=== PATIENT | male | born 1960 | race Caucasian/White ===

== ENCOUNTER 2018-09-10 10:04 | Day surgery (SDC) | payer BC ==
[~2018-09-10 10:04] MED LIST: Lactated Ringers 1,000 ML IV SCH; Lidocaine 1%/Sod Bicarbonate in NS 8.4% 1 ML Syringe IDERM PRN; Sodium Chloride 0.9% 10 ML Syringe FLUSH PRN
[2018-09-10] MEDS ORDERED: Lidocaine 1% 30 ML SDV ONE (10:17)
[2018-09-10] MEDS ORDERED: Bupivacaine 0.25% 30 ML SDV ONE (10:19)
[2018-09-10] MEDS ORDERED: Bupivacaine 0.25% 10 ML SDV ONE (10:47)
[2018-09-10] MEDS ORDERED: Triamcinolone Acetonide 40 MG/ML 1 ML MDV ONE (10:47)
[2018-09-10 11:29] VITALS: BP 153/96
--- NOTE | 2018-09-10 13:28 | PCM.OPNOTE ---
- General Post-Op/Procedure Note Date of Surgery/Procedure: 09/10/18 Operative Procedure(s): left carpal tunnel release with right basilar thumb joint injection Pre Op Diagnosis: left median nerve compression neuropathy Post-Op Diagnosis: Same Anesthesia Technique: Local Primary Surgeon: Gabo Ash Customer Supply Coordinator: Mary Dalton in mLs: 5 Complications: None Condition: Good
--- NOTE | 2018-09-10 13:50 | OR ---
DATE OF OPERATION: 09/10/2018 SURGEON: Gabo Ash MD OPERATION PERFORMED: Left carpal tunnel release with right basilar thumb joint injection. 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 ANESTHESIA: Local. PLC TECHNICIAN: Mary Dalton PA-C. ESTIMATED BLOOD LOSS: Less than 5 mL. COMPLICATIONS: None. CONDITION: Stable. ANESTHESIA: None. DESCRIPTION OF PROCEDURE: The patient was identified in the preop holding area. Proper site was marked and identified by the surgeon. The patient was taken back to the operating theater where after adequate anesthesia, the patient's left upper extremity was sterilely prepped and draped in the usual sterile fashion. OR time-out was performed. The patient did not receive antibiotics and it is not indicated for soft tissue hand procedure. At this time, the left upper extremity was exsanguinated and an Esmarch was used as a tourniquet on the forearm. At this time, using 1% lidocaine without epinephrine and 0.25% Marcaine without epinephrine, the palmar cutaneous branch of the median nerve was anesthetized and then the incisional site was anesthetized using Beach cardinal line and ulnar border of the fourth digit as reference. Once this had set up, an incision was made. Blunt dissection was taken down to the palmar cutaneous fascia. Palmar cutaneous fascia was incised with a Tomales blade. At this time, the transverse carpal ligament was identified. A small rent was made in the transverse carpal ligament with a Tomales blade under direct visualization. Resection of the transverse carpal ligament was done distally using tenotomy scissors making sure to stop short of the palmar arch. At this time, attention was turned proximally after it was found to be adequately released. Using the tenotomy scissors keeping the tips ulnar to protect the palmar cutaneous branch of the median nerve, the superficial forearm fascia as well as the transverse carpal ligament were resected proximally. It was found to be adequate release both proximally and distally. At this time, adequate saline was irrigated through the wound. 4-0 nylon sutures were used closure of the skin. The patient was placed in a sterile soft dressing and sent to PACU in stable condition. Under sterile technique, 1 mL of 40 mg Kenalog and 1 mL of 0.25% Marcaine were injected under sterile technique to the right basilar thumb joint. The patient tolerated both procedures well. PERFECTO /[id number]
== END 2018-09-10 11:31 | disposition home or self-care (01) ==
LOC: JD.SDS 10:04
PROVIDERS: ATTEND Orthopaedic Surgery
DX: G56.02 Carpal tunnel syndrome, left upper limb (principal); M19.041 Primary osteoarthritis, right hand; I10 Essential (primary) hypertension; I25.10 Atherosclerotic heart disease of native coronary artery without angina pectoris; E78.00 Pure hypercholesterolemia, unspecified; E78.1 Pure hyperglyceridemia; K57.92 Diverticulitis of intestine, part unspecified, without perforation or abscess without bleeding; Z79.82 Long term (current) use of aspirin; Z79.899 Other long term (current) drug therapy
CPT/HCPCS: 20600; 64721; 87641; J2001; J3301; J3490

== ENCOUNTER 2019-03-07 17:21 | Emergency (ER) | payer BC ==
[2019-03-07 17:30] VITALS: BP 136/84
[2019-03-07] MEDS ORDERED: Sodium Chloride 0.9% 10 ML Syringe FLUSH PRN (17:36)
--- NOTE | 2019-03-07 18:28 | EDM.PDOC ---
ED HPI GENERAL MEDICAL PROBLEM - General Chief Complaint: Cardiovascular Problem Stated Complaint: SOB,CHEST PAIN, TINGLING IN LEFT ARM Time Seen by Provider: 03/07/19 17:30 Source of Information: Reports: Patient History Limitations: Reports: No Limitations - History of Present Illness INITIAL COMMENTS - FREE TEXT/NARRATIVE: The patient presents with chest pain, shortness of breath and dizziness at times. This has been going on for a few months. It comes and goes. He had no symptoms today. He has a history of tripe vessel bypass in 2008. 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 He denies fever, chills, cough, congestion, runny nose, abdominal pain, nausea or vomiting. He says he drinks daily and would like to detox. He drinks 6 to 8 cans of beer per night. He also started to smoke in the past year. Onset: Gradual Duration: Week(s): Location: Reports: Chest Quality: Reports: Pressure Severity: Mild Improves with: Reports: None Worsens with: Reports: None Associated Symptoms: Reports: Chest Pain, Shortness of Breath. Denies: Cough, Fever/Chills, Headaches, Nausea/Vomiting Left Arm Pain Score (Numeric/FACES): 2 - Related Data Allergies Allergy/AdvReac Type Severity Reaction Status Date / Time No Known Allergies Allergy Verified 09/09/18 10:46 Home Meds: Home Meds Fenofibrate Nanocrystallized [Fenofibrate] 145 mg PO BEDTIME 12/13/14 [History] Lisinopril [Prinivil] 20 mg PO BEDTIME 12/13/14 [History] Metoprolol Tartrate [Lopressor] 25 mg PO BID 12/13/14 [History] Aspirin [Adult Low Dose Aspirin EC] 81 mg PO DAILY 09/09/18 [History] Fish Oil/[place]-3 Fatty Acids [Fish Oil 1,000 MG] 1 gm PO DAILY 09/09/18 [History ] atorvaSTATin Calcium [Lipitor] 40 mg PO DAILY 09/09/18 [History] Cyanocobalamin (Vitamin B-12) [Vitamin B-12] 1,000 mcg PO DAILY 03/07/19 [ History] LORazepam [Ativan] 1 mg PO DAILY #18 tablet 03/07/19 [Rx] Ondansetron [Zofran ODT] 4 mg PO Q6H PRN #20 tab.dis 03/07/19 [Rx] Past Medical History HEENT History: Reports: Impaired Vision Other HEENT History: frequent nose bleeds, wears glasses Cardiovascular History: Reports: Bypass, High Cholesterol, Hypertension, Other ( See Below) Other Cardiovascular History: coronary artery atherosclerosis, chest pain Respiratory History: Reports: None Gastrointestinal History: Reports: Diverticulosis Other Genitourinary History: CKD [employer] 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 History: Reports: None Musculoskeletal History: Reports: None Neurological History: Reports: None Psychiatric History: Reports: None, Addiction Endocrine/Metabolic History: Reports: None Hematologic History: Reports: None Immunologic History: Reports: None Oncologic (Cancer) History: Reports: None Dermatologic History: Reports: None - Past Surgical History Head Surgeries/Procedures: Reports: None HEENT Surgical History: Reports: None Cardiovascular Surgical History: Reports: Coronary Artery Bypass Other Cardiovascular Surgeries/Procedures: x3 Respiratory Surgical History: Reports: None GI Surgical History: Reports: Appendectomy, Colonoscopy Male Surgical History: Reports: None Endocrine Surgical History: Reports: None Musculoskeletal Surgical History: Reports: None Oncologic Surgical History: Reports: None Dermatological Surgical History: Reports: None Social & Family History - Tobacco Use Smoking Status *Q: Current Every Day Smoker Years of Tobacco use: 1 Packs/Tins Daily: 1 - Caffeine Use Caffeine Use: Reports: Coffee - Recreational Drug Use Recreational Drug Use: No ED ROS GENERAL - Review of Systems Review Of Systems: See Below Constitutional: Reports: No Symptoms HEENT: Reports: No Symptoms Respiratory: Reports: Shortness of Breath Cardiovascular: Reports: Chest Pain Endocrine: Reports: No Symptoms GI/Abdominal: Reports: No Symptoms ED EXAM, GENERAL - Physical Exam Exam: See Below Exam Limited By: No Limitations General Appearance: Alert, No Apparent Distress Ears: Normal External Exam Nose: Normal Inspection Head: Atraumatic, Normocephalic Neck: Normal Inspection Respiratory/Chest: No Respiratory Distress, Lungs Clear, Normal Breath Sounds Cardiovascular: Regular Rate, Rhythm, No Edema, No Murmur GI/Abdominal: Soft, Non-Tender, No Organomegaly, No Mass Back Exam: Normal Inspection EKG INTERPRETATION EKG Date: 03/07/19 Time: 17:35 Rhythm: NSR Rate (Beats/Min): 64 Holder: Normal P-Wave: Present QRS: Normal ST-T: Normal QT: Normal Course - Vital Signs Last Recorded V/S: Last Vital Signs Temp 98.3 F 03/07/19 17:29 Pulse 66 03/07/19 17:29 Resp 20 03/07/19 17:29 BP 136/84 03/07/19 17:29 Pulse Ox 99 03/07/19 17:29 - Orders/Labs/Meds Orders: Active Orders 24 hr Category Date Time Status EKG Documentation Completion [RC] ASDIRECTED Care 03/07/19 17:26 Active Peripheral IV Care [RC] . DIRECTED Care 03/07/19 17:36 Active Chest 1V Frontal [CR] Stat Exams 03/07/19 17:34 Taken Sodium Chloride 0.9% [Saline Flush] Med 03/07/19 17:36 Active 10 ml FLUSH ASDIRECTED PRN Peripheral IV Insertion Adult [OM.PC] Routine Oth 03/07/19 17:36 Ordered EKG 12 Lead [EK] Stat Ther 03/07/19 17:26 Ordered Medication Orders Sodium Chloride (Saline Flush) 10 ml FLUSH ASDIRECTED PRN PRN Reason: Keep Vein Open Last Admin: 03/07/19 17:38 Dose: 10 ml Labs: Laboratory Tests 03/07/19 03/07/19 03/07/19 Range/Units 17:30 17:30 17:30 WBC 8.56 (4.23-9.07) K/mm3 RBC 4.09 L (4.63-6.08) M/mm3 Hgb 12.7 L (13.7-17.5) gm/L Hct 38.4 L (40.1-51.0) % MCV 93.9 H (79.0-92.2) fl MCH 31.1 (25.7-32.2) pg MCHC 33.1 (32.2-35.5) g/dl RDW Std Deviation 42.5 (35.1-43.9) fL Plt Count 280 (163-337) K/mm3 MPV 9.2 L (9.4-12.3) fl Neut % (Auto) 60.3 (34.0-67.9) % Lymph % (Auto) 23.7 (21.8-53.1) % Louisa % (Auto) 11.9 (5.3-12.2) % Eos % (Auto) 2.8 (0.8-7.0) Baso % (Auto) 0.8 (0.1-1.2) % Neut # (Auto) 5.16 (1.78-5.38) K/mm3 Lymph # (Auto) 2.03 (1.32-3.57) K/mm3 Louisa # (Auto) 1.02 H (0.30-0.82) K/mm3 Eos # (Auto) 0.24 (0.04-0.54) K/mm3 Baso # (Auto) 0.07 (0.01-0.08) K/mm3 D-Dimer, Quantitative 0.30 (0.19-0.50) mg/L Sodium 140 (136-145) mEq/L Potassium 4.4 (3.5-5.1) mEq/L Chloride 106 (98-107) mEq/L Carbon Dioxide 25 (21-32) mEq/L Anion Gap 13.4 (5-15) BUN 24 H (7-18) mg/dL Creatinine 1.3 (0.7-1.3) mg/dL Est Cr Clr Drug Dosing 66.77 mL/min Estimated GFR (MDRD) 57 (>60) mL/min BUN/Creatinine Ratio 18.5 H (14-18) Glucose 102 (74-106) mg/dL Calcium 9.3 (8.5-10.1) mg/dL Total Bilirubin 0.4 (0.2-1.0) mg/dL AST 13 L (15-37) U/L ALT 31 (16-63) U/L Alkaline Phosphatase 88 (46-116) U/L Troponin I < 0.017 (0.00-0.056) ng/mL Total Protein 7.8 (6.4-8.2) g/dl Albumin 3.9 (3.4-5.0) g/dl Globulin 3.9 gm/dL Albumin/Globulin Ratio 1.0 (1-2) Ethyl Alcohol 0.00 (0.00) gm% Meds: Medications Generic Name Dose Route Start Last Admin Trade Name Freq PRN Reason Stop Dose Admin Sodium Chloride 10 ml 03/07/19 17:36 03/07/19 17:38 Saline Flush FLUSH 10 ml ASDIRECTED PRN Administration Keep Vein Open - Re-Assessments/Exams Free Text/Narrative Re-Assessment/Exam: 03/07/19 18:28 I ordered an IV saline lock, EKG, CXR and labs. 03/07/19 18:29 His EKG shows a NSR with no acute changes. His CXR looks good. His CBC and CMP look good. His d-dimer was negative. His troponin was negative. His ETOH is 0. 03/07/19 19:04 I had him talk [facility] and they have no room for him tonight but they will evaluate him in the morning. I will give him some ativan and zofran. Departure - Departure Time of Disposition: 19:05 Disposition: Home, Self-Care 01 Condition: Good Clinical Impression: Chest pain Qualifiers: Chest pain type: unspecified Qualified Code(s): R07.9 - Chest pain, unspecified Alcohol addiction Qualifiers: Substance use status: unspecified alcohol-induced disorder Qualified Code(s): F10.29 - Alcohol dependence with unspecified alcohol-induced disorder Prescriptions: LORazepam [Ativan] 1 mg PO DAILY #18 tablet Ondansetron [Zofran ODT] 4 mg PO Q6H PRN #20 tab.dis PRN Reason: Nausea\vomiting Referrals: Maricarmen Stinson NP [Primary Care Provider] - Forms: ED Department Discharge Additional Instructions: Take your medication as prescribed. Take the ativan 3 times per day for 3 days , then 2 times per day for 3 days and then at night for 3 nights. Take the zofran every 6 hours as needed for nausea and vomiting. [facility] tomorrow at 8am. Please return if you are worse. Follow up with your doctor within a week. - My Orders Last 24 Hours: My Active Orders 03/07/19 17:26 EKG Documentation Completion [RC] ASDIRECTED EKG 12 Lead [EK] Stat 03/07/19 17:34 Chest 1V Frontal [CR] Stat 03/07/19 17:36 Peripheral IV Care [RC] . DIRECTED Sodium Chloride 0.9% [Saline Flush] 10 ml FLUSH ASDIRECTED PRN Peripheral IV Insertion Adult [OM.PC] Routine - Assessment/Plan Last 24 Hours: My Active Orders 03/07/19 17:26 EKG Documentation Completion [RC] ASDIRECTED EKG 12 Lead [EK] Stat 03/07/19 17:34 Chest 1V Frontal [CR] Stat 03/07/19 17:36 Peripheral IV Care [RC] . DIRECTED Sodium Chloride 0.9% [Saline Flush] 10 ml FLUSH ASDIRECTED PRN Peripheral IV Insertion Adult [OM.PC] Routine
--- NOTE | 2019-03-08 08:32 | CR ---
Chest: Portable view of the chest was obtained. Comparison: No prior chest x-ray is available. Heart size and mediastinum are normal. Previous sternotomy is noted for CABG. Minimal linear scarring or atelectasis is seen within the left base. Lungs otherwise are clear with no acute parenchymal change. Bony structures are grossly intact. Impression: 1. Prior CABG. 2. Other findings believed to be incidental. Nothing acute is appreciated on portable chest x-ray. Diagnostic code #2
== END 2019-03-07 19:28 | disposition home or self-care (01) ==
LOC: JD.ED 17:21
DX: R07.9 Chest pain, unspecified (principal); F10.29 Alcohol dependence with unspecified alcohol-induced disorder; E78.00 Pure hypercholesterolemia, unspecified; I12.9 Hypertensive chronic kidney disease with stage 1 through stage 4 chronic kidney disease, or unspecified chronic kidney disease; N18.9 Chronic kidney disease, unspecified; F17.210 Nicotine dependence, cigarettes, uncomplicated; Z79.899 Other long term (current) drug therapy; Z79.82 Long term (current) use of aspirin
CPT/HCPCS: 36415; 71045; 80053; 84484; 85025; 85379; 93005; 99285; G0480

== ENCOUNTER 2019-04-30 11:29 | Emergency (ER) | payer BC ==
[2019-04-30 11:37] VITALS: BP 153/86; PULSE 64
[2019-04-30] MEDS ORDERED: HYDROmorphone 1 MG/ML Syringe IVPUSH STA (11:52)
[2019-04-30] MEDS ORDERED: Sodium Chloride 0.9% 10 ML Syringe FLUSH PRN (11:52)
[2019-04-30] MEDS ORDERED: Ondansetron 4 MG/2 ML SDV IVPUSH ONE (11:52)
[2019-04-30] MEDS ORDERED: Sodium Chloride 0.9% 1,000 ML IV SCH (12:00)
--- NOTE | 2019-04-30 12:20 | EDM.PDOC ---
ED HPI GENERAL MEDICAL PROBLEM - General Chief Complaint: Flank Pain Stated Complaint: RIGHT FLANK/KIDNEY PAIN Time Seen by Provider: 04/30/19 11:52 Source of Information: Reports: Patient, RN Notes Reviewed History Limitations: Reports: No Limitations - History of Present Illness INITIAL COMMENTS - FREE TEXT/NARRATIVE: Patient is a 59-year-old male who presents to the ED for the evaluation of right -sided flank pain. Patient states that he noticed a little discomfort last night, but he states that it is worsened throughout this morning. He went to work and had to leave work due to the pain. He notes that the pain does radiate into the groin, he characterizes as a throbbing pain that is constant in nature. He took 2 aspirins this morning for pain management. He denies any dysuria, urgency or frequency, and states that he thinks he is actually gone. He left than he normally does. He further denies any history of a kidney stone any blood in the urine, any fevers or chills, vomiting or diarrhea. He states he did have a little bit of nausea this morning, this is better. He has not had any issues with urinary problems prior to this. Patient doesn't think that he could be dehydrated, as he states he is drinking an adequate amount of water throughout the day. Right Flank Pain Score (Numeric/FACES): 10 - Related Data Allergies Allergy/AdvReac Type Severity Reaction Status Date / Time No Known Allergies Allergy Verified 04/30/19 11:37 Home Meds: Home Meds Fenofibrate Nanocrystallized [Fenofibrate] 145 mg PO BEDTIME 12/13/14 [History] Lisinopril [Prinivil] 20 mg PO BEDTIME 12/13/14 [History] Metoprolol Tartrate [Lopressor] 25 mg PO BID 12/13/14 [History] Aspirin [Adult Low Dose Aspirin EC] 81 mg PO DAILY 09/09/18 [History] Fish Oil/[place]-3 Fatty Acids [Fish Oil 1,000 MG] 1 gm PO DAILY 09/09/18 [History ] atorvaSTATin Calcium [Lipitor] 40 mg PO DAILY 09/09/18 [History] Cyanocobalamin (Vitamin B-12) [Vitamin B-12] 1,000 mcg PO DAILY 03/07/19 [ History] Past Medical History HEENT History: Reports: Impaired Vision Other HEENT History: frequent nose bleeds, wears glasses Cardiovascular History: Reports: Bypass, High Cholesterol, Hypertension, Other ( See Below) Other Cardiovascular History: coronary artery atherosclerosis, chest pain Respiratory History: Reports: None Gastrointestinal History: Reports: Diverticulosis Genitourinary History: Reports: None Other Genitourinary History: 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 Musculoskeletal History: Reports: None Neurological History: Reports: None Psychiatric History: Reports: None, Addiction Endocrine/Metabolic History: Reports: Obesity/BMI 30+ Hematologic History: Reports: None Immunologic History: Reports: None Oncologic (Cancer) History: Reports: None Dermatologic History: Reports: None - Infectious Disease History Infectious Disease History: Reports: None - Past Surgical History Head Surgeries/Procedures: Reports: None HEENT Surgical History: Reports: None Cardiovascular Surgical History: Reports: Coronary Artery Bypass Other Cardiovascular Surgeries/Procedures: x3 Respiratory Surgical History: Reports: None GI Surgical History: Reports: Appendectomy, Colonoscopy Male Surgical History: Reports: None Endocrine Surgical History: Reports: None Musculoskeletal Surgical History: Reports: Carpal Tunnel Oncologic Surgical History: Reports: None Dermatological Surgical History: Reports: None Social & Family History - Tobacco Use Smoking Status *Q: Current Every Day Smoker Years of Tobacco use: 10 Packs/Tins Daily: 0.2 - Caffeine Use Caffeine Use: Reports: Coffee - Recreational Drug Use Recreational Drug Use: No ED ROS GENERAL - Review of Systems Review Of Systems: See Below Constitutional: Denies: Fever, Chills HEENT: Reports: No Symptoms Respiratory: Denies: Shortness of Breath Cardiovascular: Denies: Chest Pain GI/Abdominal: Reports: Nausea. Denies: Abdominal Pain, Diarrhea, Vomiting : Reports: Flank Pain (Right sided with radiation to R groin). Denies: Dysuria, Frequency, Incontinence, Urgency Musculoskeletal: Reports: No Symptoms Skin: Reports: No Symptoms Neurological: Reports: No Symptoms Psychiatric: Reports: No Symptoms Hematologic/Lymphatic: Reports: No Symptoms ED EXAM, RENAL/ - Physical Exam Exam: See Below Exam Limited By: No Limitations General Appearance: Alert, WD/WN, No Apparent Distress Throat/Mouth: Normal Inspection, Normal Lips, Normal Teeth, Normal Gums, Normal Oropharynx, Normal Voice, No Airway Compromise Head: Atraumatic, Normocephalic Neck: Normal Inspection Respiratory/Chest: No Respiratory Distress, Lungs Clear, Normal Breath Sounds, No Accessory Muscle Use, Chest Non-Tender Cardiovascular: Normal Peripheral Pulses, Regular Rate, Rhythm, No Murmur GI/Abdominal: Normal Bowel Sounds, Soft, Non-Tender, No Distention, No Mass Extremities: Normal Inspection, Normal Capillary Refill Neurological: Alert, Oriented, Normal Cognition, No Motor/Sensory Deficits Psychiatric: Normal Affect, Normal Mood Skin Exam: Warm, Dry, Intact, Normal Color, No Rash Course - Vital Signs Last Recorded V/S: Last Vital Signs Temp 97.4 F 04/30/19 11:34 Pulse 64 04/30/19 11:34 Resp 16 04/30/19 11:34 BP 153/86 H 04/30/19 11:34 Pulse Ox 96 04/30/19 11:34 - Orders/Labs/Meds Orders: Active Orders 24 hr Category Date Time Status Peripheral IV Care [RC] . DIRECTED Care 04/30/19 11:53 Active Strain Urine [RC] ASDIRECTED Care 04/30/19 11:52 Active Sodium Chloride 0.9% [Normal Saline] 1,000 ml Med 04/30/19 12:00 Active IV ASDIRECTED Sodium Chloride 0.9% [Saline Flush] Med 04/30/19 11:52 Active 10 ml FLUSH ASDIRECTED PRN Peripheral IV Insertion Adult [OM.PC] Stat Oth 04/30/19 11:53 Ordered Medication Orders Sodium Chloride (Normal Saline) 1,000 mls @ 150 mls/hr IV ASDIRECTED BLANE Last Admin: 04/30/19 11:59 Dose: 150 mls/hr Sodium Chloride (Saline Flush) 10 ml FLUSH ASDIRECTED PRN PRN Reason: Keep Vein Open Last Admin: 04/30/19 11:55 Dose: 10 ml Labs: Laboratory Tests 04/30/19 04/30/19 04/30/19 Range/Units 11:55 11:55 11:55 WBC 7.36 (4.23-9.07) K/mm3 RBC 4.28 L (4.63-6.08) M/mm3 Hgb 13.1 L (13.7-17.5) gm/dl Hct 39.6 L (40.1-51.0) % MCV 92.5 H (79.0-92.2) fl MCH 30.6 (25.7-32.2) pg MCHC 33.1 (32.2-35.5) g/dl RDW Std Deviation 42.1 (35.1-43.9) fL Plt Count 274 (163-337) K/mm3 MPV 9.2 L (9.4-12.3) fl Neut % (Auto) 69.2 H (34.0-67.9) % Lymph % (Auto) 20.4 L (21.8-53.1) % Oliver % (Auto) 7.1 (5.3-12.2) % Eos % (Auto) 1.9 (0.8-7.0) Baso % (Auto) 1.1 (0.1-1.2) % Neut # (Auto) 5.10 (1.78-5.38) K/mm3 Lymph # (Auto) 1.50 (1.32-3.57) K/mm3 Oliver # (Auto) 0.52 (0.30-0.82) K/mm3 Eos # (Auto) 0.14 (0.04-0.54) K/mm3 Baso # (Auto) 0.08 (0.01-0.08) K/mm3 Sodium 136 (136-145) mEq/L Potassium 4.3 (3.5-5.1) mEq/L Chloride 100 (98-107) mEq/L Carbon Dioxide 27 (21-32) mEq/L Anion Gap 13.3 (5-15) BUN 16 (7-18) mg/dL Creatinine 1.2 (0.7-1.3) mg/dL Est Cr Clr Drug Dosing 72.34 mL/min Estimated GFR (MDRD) > 60 (>60) mL/min BUN/Creatinine Ratio 13.3 L (14-18) Glucose 115 H (74-106) mg/dL Calcium 9.5 (8.5-10.1) mg/dL Total Bilirubin 0.4 (0.2-1.0) mg/dL AST 17 (15-37) U/L ALT 28 (16-63) U/L Alkaline Phosphatase 67 (46-116) U/L C-Reactive Protein < 0.2 (<1.0) mg/dL Total Protein 7.9 (6.4-8.2) g/dl Albumin 4.1 (3.4-5.0) g/dl Globulin 3.8 gm/dL Albumin/Globulin Ratio 1.1 (1-2) Urine Color (Yellow) Urine Appearance (Clear) Urine pH (5.0-8.0) Ur Specific [place] (1.005-1.030) Urine Protein (Negative) Urine Glucose (UA) (Negative) Urine Ketones (Negative) Urine Occult Blood (Negative) Urine Nitrite (Negative) Urine Bilirubin (Negative) Urine Urobilinogen (0.2-1.0) Ur Leukocyte Esterase (Negative) Urine RBC (0-5) /hpf Urine WBC (0-5) /hpf Ur Epithelial Cells (0-5) /hpf Urine Bacteria (FEW) /hpf Urine Mucus (FEW) /hpf 04/30/19 Range/Units 13:45 WBC (4.23-9.07) K/mm3 RBC (4.63-6.08) M/mm3 Hgb (13.7-17.5) gm/dl Hct (40.1-51.0) % MCV (79.0-92.2) fl MCH (25.7-32.2) pg MCHC (32.2-35.5) g/dl RDW Std Deviation (35.1-43.9) fL Plt Count (163-337) K/mm3 MPV (9.4-12.3) fl Neut % (Auto) (34.0-67.9) % Lymph % (Auto) (21.8-53.1) % Oliver % (Auto) (5.3-12.2) % Eos % (Auto) (0.8-7.0) Baso % (Auto) (0.1-1.2) % Neut # (Auto) (1.78-5.38) K/mm3 Lymph # (Auto) (1.32-3.57) K/mm3 Oliver # (Auto) (0.30-0.82) K/mm3 Eos # (Auto) (0.04-0.54) K/mm3 Baso # (Auto) (0.01-0.08) K/mm3 Sodium (136-145) mEq/L Potassium (3.5-5.1) mEq/L Chloride (98-107) mEq/L Carbon Dioxide (21-32) mEq/L Anion Gap (5-15) BUN (7-18) mg/dL Creatinine (0.7-1.3) mg/dL Est Cr Clr Drug Dosing mL/min Estimated GFR (MDRD) (>60) mL/min BUN/Creatinine Ratio (14-18) Glucose (74-106) mg/dL Calcium (8.5-10.1) mg/dL Total Bilirubin (0.2-1.0) mg/dL AST (15-37) U/L ALT (16-63) U/L Alkaline Phosphatase (46-116) U/L C-Reactive Protein (<1.0) mg/dL Total Protein (6.4-8.2) g/dl Albumin (3.4-5.0) g/dl Globulin gm/dL Albumin/Globulin Ratio (1-2) Urine Color Yellow (Yellow) Urine Appearance Clear (Clear) Urine pH 6.0 (5.0-8.0) Ur Specific [place] 1.025 (1.005-1.030) Urine Protein Negative (Negative) Urine Glucose (UA) Negative (Negative) Urine Ketones Negative (Negative) Urine Occult Blood Negative (Negative) Urine Nitrite Negative (Negative) Urine Bilirubin Negative (Negative) Urine Urobilinogen 0.2 (0.2-1.0) Ur Leukocyte Esterase Negative (Negative) Urine RBC 0-5 (0-5) /hpf Urine WBC 0-5 (0-5) /hpf Ur Epithelial Cells 0-5 (0-5) /hpf Urine Bacteria Few (FEW) /hpf Urine Mucus Few (FEW) /hpf Meds: Medications Generic Name Dose Route Start Last Admin Trade Name Freq PRN Reason Stop Dose Admin Sodium Chloride 1,000 mls @ 150 mls/hr 04/30/19 12:00 04/30/19 11:59 Normal Saline IV 150 mls/hr ASDIRECTED BLANE Administration Sodium Chloride 10 ml 04/30/19 11:52 04/30/19 11:55 Saline Flush FLUSH 10 ml ASDIRECTED PRN Administration Keep Vein Open Discontinued Medications Generic Name Dose Route Start Last Admin Trade Name Freq PRN Reason Stop Dose Admin Hydromorphone HCl 1 mg 04/30/19 11:52 04/30/19 11:59 Dilaudid IVPUSH 04/30/19 11:53 1 mg ONETIME STA Administration Ondansetron HCl 4 mg 04/30/19 11:52 04/30/19 11:59 Zofran IVPUSH 04/30/19 11:53 4 mg ONETIME ONE Administration - Re-Assessments/Exams Free Text/Narrative Re-Assessment/Exam: 04/30/19 12:19 Patient presents to the ED for the evaluation of right-sided flank pain. I did order an IV to be placed, some IV fluids, 1 mg Dilaudid, 4 mg Zofran, urinalysis , abdominal pelvis CT without contrast for evaluation of a possible kidney stone. 04/30/19 14:51 Patient's labs are done, and demonstrate no acute abnormalities, CT did not demonstrate any sort a kidney stone or other acute abnormalities. He did have a right colectomy, and diffuse colonic diverticuli without inflammatory change of diverticulitis. Due to the patient's normal workup, I did go in and asked the patient again if he had any previous injury to the areas, he states that he does lift some somewhat heavy things at work, and thinks maybe that could've caused some of the issue. But he states he never felt this sort of pain before. At this time there is no acute abnormalities appreciated, will discharge patient home with general recommendations. Departure - Departure Time of Disposition: 14:53 Disposition: Home, Self-Care 01 Condition: Fair Clinical Impression: Right flank pain - Discharge Information *PRESCRIPTION DRUG MONITORING PROGRAM REVIEWED*: No *COPY OF PRESCRIPTION DRUG MONITORING REPORT IN PATIENT ALIRIO: No Instructions: Flank Pain, Adult, [id number] Referrals: Maricarmen Stinson NP [Primary Care Provider] - Forms: ED Department Discharge Additional Instructions: You have been evaluated in the ED for your right sided flank pain. Your CT demonstrated no acute abnormalities like kidney stones or other worrisome findings. Please use ice as tolerated to the affected area. You may take Tylenol 500 mg or ibuprofen 600mg q6 hrs for pain relief. Please do so until you have a tolerable level of pain with activity. Do not exceed 4000mg Tylenol or 3200mg ibuprofen in a 24 hour time period. Please return to ED if your symptoms should change or worsen. - My Orders Last 24 Hours: My Active Orders 04/30/19 11:52 Strain Urine [RC] ASDIRECTED Sodium Chloride 0.9% [Saline Flush] 10 ml FLUSH ASDIRECTED PRN 04/30/19 11:53 Peripheral IV Care [RC] . DIRECTED Peripheral IV Insertion Adult [OM.PC] Stat 04/30/19 12:00 Sodium Chloride 0.9% [Normal Saline] 1,000 ml IV ASDIRECTED - Assessment/Plan Last 24 Hours: My Active Orders 04/30/19 11:52 Strain Urine [RC] ASDIRECTED Sodium Chloride 0.9% [Saline Flush] 10 ml FLUSH ASDIRECTED PRN 04/30/19 11:53 Peripheral IV Care [RC] . DIRECTED Peripheral IV Insertion Adult [OM.PC] Stat 04/30/19 12:00 Sodium Chloride 0.9% [Normal Saline] 1,000 ml IV ASDIRECTED
--- NOTE | 2019-04-30 13:23 | CT ---
CT abdomen and pelvis Technique: Multiple axial sections were obtained from above the dome of the diaphragm inferiorly through the pubic symphysis. Intravenous and oral contrast was not utilized. Study performed as a renal stone protocol. Comparison: Prior CT abdomen and pelvis exam of 12/13/14. Findings: Ureter show no dilatation or obstruction. No abnormal calcifications are seen within the ureters. Kidneys show no abnormal calcifications. No inflammatory change is seen around the kidneys. Visualized lung bases show nothing acute. Liver contains no focal abnormality. Gallbladder contains no calcified gallstones. Spleen appears within normal limits. Adrenal glands show no nodule. Pancreas shows no discrete abnormality. Aorta shows atherosclerotic calcification which continues into the iliac vessels. No aneurysm is seen. No retroperitoneal adenopathy is seen. Colon shows diffuse diverticuli without inflammatory change of diverticulitis. There appears to have been previous right-sided colectomy. No free fluid or inflammatory change is seen. No pelvic mass or adenopathy is seen. Bone window settings were reviewed which show scattered degenerative change within the spine. No acute osseous abnormality is appreciated. Impression: 1. Prior right colectomy. 2. Diffuse colonic diverticuli without inflammatory change of diverticulitis. 3. Other findings which are felt to be chronic and incidental as noted above. Diagnostic code #2
== END 2019-04-30 15:13 | disposition home or self-care (01) ==
LOC: JD.ED 11:29
DX: R10.9 Unspecified abdominal pain (principal); I25.10 Atherosclerotic heart disease of native coronary artery without angina pectoris; E78.00 Pure hypercholesterolemia, unspecified; I12.9 Hypertensive chronic kidney disease with stage 1 through stage 4 chronic kidney disease, or unspecified chronic kidney disease; N18.9 Chronic kidney disease, unspecified; E66.9 Obesity, unspecified; F17.210 Nicotine dependence, cigarettes, uncomplicated; Z79.82 Long term (current) use of aspirin; Z79.899 Other long term (current) drug therapy; Z68.45 Body mass index [BMI] 70 or greater, adult
CPT/HCPCS: 36415; 74176; 80053; 81001; 85025; 86140; 96361; 96374; 96375; 99284; J1170; J2405; J7040

== ENCOUNTER 2019-12-09 10:07 | Day surgery (SDC) | payer BC ==
--- NOTE | 2019-12-09 10:44 | PCM.PREANE ---
Preanesthetic Assessment - Anesthesia/Transfusion/Family Hx Anesthesia History: Prior Anesthesia Without Reaction Family History of Anesthesia Reaction: No Transfusion History: No Prior Transfusion(s) - Review of Systems General: No Symptoms Pulmonary: No Symptoms Cardiovascular: No Symptoms Gastrointestinal: No Symptoms Neurological: No Symptoms Other: Reports: None - Physical Assessment NPO Status Date: 12/08/19 NPO Status Time: 18:00 ASA Class: 2 Mental Status: Alert & Oriented x3 Airway Class: Mallampati = 1 Dentition: Reports: Normal Dentition Thyro-Mental Finger Breadths: 3 Mouth Opening Finger Breadths: 3 ROM/Head Extension: Full Lungs: Clear to Auscultation, Normal Respiratory Effort Cardiovascular: Regular Rate, Regular Rhythm - Lab Values: Laboratory Last Values SARS Virus RNA (PCR) Negative (NEGATIVE) 12/05/19 15:21 MRSA (PCR) Negative 12/03/19 15:20 - Allergies Allergies/Adverse Reactions: Allergies Allergy/AdvReac Type Severity Reaction Status Date / Time No Known Allergies Allergy Verified 04/30/19 11:37 - Anesthesia Plan Beta Willie: Metoprolol Med Last Dose Date: 12/09/19 Med Last Dose Time: 06:00 - Acknowledgements Anesthesia Type Planned: General Anesthesia Pt an Appropriate Candidate for the Planned Anesthesia: Yes Alternatives and Risks of Anesthesia Discussed w Pt/Guardian: Yes Pt/Guardian Understands and Agrees with Anesthesia Plan: Yes PreAnesthesia Questionnaire HEENT History: Reports: Impaired Vision Other HEENT History: frequent nose bleeds, wears glasses Cardiovascular History: Reports: Bypass, High Cholesterol, Hypertension, Other ( See Below) Other Cardiovascular History: coronary artery atherosclerosis, chest pain, CABG 2008 Respiratory History: Reports: None Gastrointestinal History: Reports: Diverticulosis, GERD Genitourinary History: Reports: None Other Genitourinary History: 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 History: Reports: None Neurological History: Reports: None Psychiatric History: Reports: None, Addiction Endocrine/Metabolic History: Reports: Obesity/BMI 30+ Hematologic History: Reports: None Immunologic History: Reports: None Oncologic (Cancer) History: Reports: None Dermatologic History: Reports: None - Infectious Disease History Infectious Disease History: Reports: None - Past Surgical History Head Surgeries/Procedures: Reports: None HEENT Surgical History: Reports: None Cardiovascular Surgical History: Reports: Coronary Artery Bypass Other Cardiovascular Surgeries/Procedures: x3 Respiratory Surgical History: Reports: None GI Surgical History: Reports: Appendectomy, Colonoscopy, Hernia Repair/Other ( umbilical) Female Surgical History: Reports: None Male Surgical History: Reports: None Endocrine Surgical History: Reports: None Musculoskeletal Surgical History: Reports: Carpal Tunnel Oncologic Surgical History: Reports: None Dermatological Surgical History: Reports: None - SUBSTANCE USE Smoking Status *Q: Current Some Day Smoker Recreational Drug Use History: No - HOME MEDS Home Medications: Home Meds Fenofibrate Nanocrystallized [Fenofibrate] 145 mg PO BEDTIME 12/13/14 [History] Lisinopril [Prinivil] 20 mg PO BEDTIME 12/13/14 [History] Metoprolol Tartrate [Lopressor] 25 mg PO BID 12/13/14 [History] Fish Oil/[place]-3 Fatty Acids [Fish Oil 1,000 MG] 1 gm PO DAILY 09/09/18 [History ] atorvaSTATin Calcium [Lipitor] 40 mg PO DAILY 09/09/18 [History] Cyanocobalamin (Vitamin B-12) [Vitamin B-12] 1,000 mcg PO DAILY 03/07/19 [ History] Acetaminophen/HYDROcodone [[place] 325-5 MG] 1 - 2 tab PO Q6H PRN #40 tablet 12/08 [Rx] - CURRENT (IN HOUSE) MEDS Current Meds: Current Medications Lactated Ringer's (Ringers, Lactated) 1,000 mls @ 125 mls/hr IV ASDIRECTED BLANE Stop: 12/09/19 18:00 Lidocaine/Sodium Bicarbonate (Buffered Lidocaine 1% In Ns 8.4%) 0.25 ml IDERM ONETIME PRN PRN Reason: Prior to IV Start Stop: 12/09/19 18:00 Sodium Chloride (Saline Flush) 10 ml FLUSH ASDIRECTED PRN PRN Reason: Keep Vein Open Stop: 12/09/19 18:00
[2019-12-09] MEDS ORDERED: Propofol 200 MG/20 ML SDV ONE (10:50)
[2019-12-09] MEDS ORDERED: Lidocaine 1% 4 ML ONE (10:50)
[2019-12-09] MEDS ORDERED: ceFAZolin 1 GM Vial ONE (10:51)
[2019-12-09] MEDS ORDERED: Midazolam 1 MG/ML 2 ML SDV ONE ×2 (10:54)
[2019-12-09] MEDS ORDERED: fentaNYL 250 MCG/5 ML SDV ONE (10:56)
[2019-12-09] MEDS ORDERED: Bupivacaine 0.25% 10 ML SDV ONE (11:48)
[2019-12-09] MEDS ORDERED: fentaNYL 100 MCG/2 ML SDV ONE (12:40)
--- NOTE | 2019-12-09 13:32 | PCM.POSTAN ---
POST ANESTHESIA ASSESSMENT - MENTAL STATUS Mental Status: Alert, Oriented - VITAL SIGNS Vital Signs: Last Vital Signs Temp 36.6 C 12/09/19 10:10 Pulse 63 12/09/19 10:10 Resp 16 12/09/19 10:10 BP 136/91 H 12/09/19 10:10 Pulse Ox 97 12/09/19 10:10 - RESPIRATORY Respiratory Status: Respiratory Rate WNL, Airway Patent, O2 Saturation Stable - CARDIOVASCULAR CV Status: Pulse Rate WNL, Blood Pressure Stable - PAIN Pain Score: 0 - POST OP HYDRATION Hydration Status: Adequate & Stable
--- NOTE | 2019-12-09 13:49 | PCM48HPAN ---
Post Anesthesia Note - EVALUATION WITHIN 48HRS OF ANESTHETIC Vital Signs in Normal Range: Yes Patient Participated in Evaluation: Yes Respiratory Function Stable: Yes Airway Patent: Yes Cardiovascular Function Stable: Yes Hydration Status Stable: Yes Pain Control Satisfactory: Yes Nausea and Vomiting Control Satisfactory: Yes Mental Status Recovered: Yes Vital Signs: Last Vital Signs Temp 36.1 C 12/09/19 13:40 Pulse 67 12/09/19 13:40 Resp 22 H 12/09/19 13:40 BP 114/68 12/09/19 13:40 Pulse Ox 93 L 12/09/19 13:40
--- NOTE | 2019-12-09 13:56 | CR ---
Right wrist: 5 fluoroscopic spot views were obtained of the right wrist utilizing C-arm device. Study shows resection of the trapezium. Anchors are noted between the 1st and 2nd metacarpals. Fluoroscopy time is given as 4.6 seconds. Impression: 1. Procedural study as described above. Diagnostic code #2 This report was dictated in MDT
[2019-12-09] MEDS ORDERED: Acetaminophen/HYDROcodone 325-5 MG Tab PO ONE (14:25)
[2019-12-09 15:01] VITALS: BP 124/74; PULSE 66
--- NOTE | 2019-12-12 07:32 | PCM.OPNOTE ---
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
--- NOTE | 2019-12-12 08:08 | OR ---
DATE OF OPERATION: 12/09/2019 SURGEON: Gabo Ash MD OPERATION PERFORMED: Right wrist trapeziectomy with TightRope suspension arthroplasty. PREOPERATIVE DIAGNOSIS: Right basilar thumb joint arthritis. POSTOPERATIVE DIAGNOSIS: Right basilar thumb joint arthritis. ANESTHESIA: General LMA with local. ANESTHESIA PROVIDER: Olivia Jaramillo CRNA. BENCH SCIENTIST: Mary Dalton PA-C. ESTIMATED BLOOD LOSS: Less than 5 mL. COMPLICATIONS: None. CONDITION: Stable. DESCRIPTION OF PROCEDURE: The patient was identified in the preop holding area. Proper site was marked and identified by the surgeon. The patient was taken back to the operating theater where after adequate anesthesia, the patient's right upper extremity was sterilely prepped and draped in the usual sterile fashion. OR time-out was performed. The patient received 2 g IV Ancef. Right upper extremity was then exsanguinated and tourniquet was insufflated to 225 mmHg. A standard radial incision was made over the 1st CMC joint. This was taken down to the capsule. The neurovascular bundle proximally was retracted and identified as sharp incision was then made to the capsule and a capsulotomy was performed. Takedown of the capsule both dorsally and volarly was then done. The trapezium was then identified. An osteotome was used to split the trapezium in half and a rongeur was used to remove the trapezium in whole. C-arm fluoroscopy was utilized to make sure all of the trapezium was removed and was found to be completely removed. At this time, the Arthrex TightRope suspension kit was opened and the guide pin was placed at the base of the 1st metacarpal and placed in a trajectory up into the metaphyseal region of the 2nd metacarpal. Once it was found to be in adequate position, the patient was able to make palm flat and oppose the thumb through passive range of motion with no difficulty. On C-arm fluoroscopy, it had good gnosticism of the height of the 1st metacarpal. The guide pin was then placed up through the 2nd metacarpal after an incision was made, and the Endobutton was found to be securely fixed on the base of the 1st metacarpal. Sutures were then cut and the Endobutton was placed on the 2nd metacarpal and tension was held and then a knot stack was tied. C-arm fluoroscopy showed it to be stable with a good bounce back. Adequate saline was then irrigated through the wound. 2-0 Vicryl was used for closure of the capsule, 3-0 Vicryl was used subcutaneously, and nylon was used for the skin. The patient was placed in a sterile soft dressing and a radial thumb spica splint and sent to the PACU in stable condition. MMMCKENNA /[id number]
== END 2019-12-09 15:07 | disposition home or self-care (01) ==
LOC: JD.SDS 10:07
PROVIDERS: ATTEND Orthopaedic Surgery
DX: M18.11 Unilateral primary osteoarthritis of first carpometacarpal joint, right hand (principal); Z11.59 Encounter for screening for other viral diseases; I12.9 Hypertensive chronic kidney disease with stage 1 through stage 4 chronic kidney disease, or unspecified chronic kidney disease; N18.9 Chronic kidney disease, unspecified; E66.9 Obesity, unspecified; E78.00 Pure hypercholesterolemia, unspecified; E78.5 Hyperlipidemia, unspecified; Z79.899 Other long term (current) drug therapy; Z68.33 Body mass index [BMI] 33.0-33.9, adult
CPT/HCPCS: 01830; 36415; 76000; 76000-26; 80053; 87641; A9270-GY; C1776; J0690; J2001; J2250; J2704; J3010; J3490; J7120; U0002

== ENCOUNTER 2020-06-29 08:51 | Day surgery (SDC) | payer BC, OTHER ==
[2020-06-29] MEDS ORDERED: Ropivacaine 0.5% 5 MG/ML 30 ML SDV ONE (09:23)
[2020-06-29] MEDS ORDERED: Midazolam 1 MG/ML 2 ML SDV ONE (09:48)
[2020-06-29] MEDS ORDERED: fentaNYL 100 MCG/2 ML SDV ONE (09:48)
--- NOTE | 2020-06-29 10:24 | PCM.PREANE ---
Preanesthetic Assessment - Procedure Proposed Procedure: Left 1st Carpometacarpal arthroplasty - Anesthesia/Transfusion/Family Hx Anesthesia History: Prior Anesthesia Without Reaction Transfusion History: No Prior Transfusion(s) - Review of Systems General: No Symptoms Pulmonary: No Symptoms Cardiovascular: No Symptoms Gastrointestinal: No Symptoms Neurological: No Symptoms Other: Reports: None - Physical Assessment NPO Status Date: 06/28/20 NPO Status Time: 19:00 Vital Signs: Last Vital Signs Temp 97.0 F 06/29/20 08:50 Pulse 56 L 06/29/20 08:50 Resp 16 06/29/20 08:50 BP 133/82 06/29/20 08:50 Pulse Ox 100 06/29/20 08:50 Height: 1.8 m Weight: 108.862 kg ASA Class: 2 Mental Status: Alert & Oriented x3 Airway Class: Mallampati = 3 Dentition: Reports: Normal Dentition, [place](s) Thyro-Mental Finger Breadths: 3 Mouth Opening Finger Breadths: 3 ROM/Head Extension: Full Lungs: Clear to Auscultation, Normal Respiratory Effort Cardiovascular: Regular Rate, Regular Rhythm - Lab Values: Laboratory Last Values MRSA (PCR) Negative 06/12/20 12:06 - Allergies Allergies/Adverse Reactions: Allergies Allergy/AdvReac Type Severity Reaction Status Date / Time No Known Allergies Allergy Verified 06/26/20 13:51 - Anesthesia Plan Beta Willie: Metoprolol Med Last Dose Date: 06/29/20 Med Last Dose Time: 07:00 - Acknowledgements Anesthesia Type Planned: Regional Block, MAC Pt an Appropriate Candidate for the Planned Anesthesia: Yes Alternatives and Risks of Anesthesia Discussed w Pt/Guardian: Yes Pt/Guardian Understands and Agrees with Anesthesia Plan: Yes PreAnesthesia Questionnaire HEENT History: Reports: Impaired Vision Other HEENT History: frequent nose bleeds, wears glasses Cardiovascular History: Reports: Bypass, High Cholesterol, Hypertension, Other (See Below) Other Cardiovascular History: coronary artery atherosclerosis, chest pain, CABG 2008 Respiratory History: Reports: None Gastrointestinal History: Reports: Diverticulosis, GERD Genitourinary History: Reports: None Other Genitourinary History: CKD 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 Musculoskeletal History: Reports: None Neurological History: Reports: None Psychiatric History: Reports: None, Addiction Endocrine/Metabolic History: Reports: Obesity/BMI 30+ Hematologic History: Reports: None Other Hematologic History: hypercalcemia Immunologic History: Reports: None Oncologic (Cancer) History: Reports: None Dermatologic History: Reports: None - Infectious Disease History Infectious Disease History: Reports: None - Past Surgical History Head Surgeries/Procedures: Reports: None HEENT Surgical History: Reports: None Cardiovascular Surgical History: Reports: Coronary Artery Bypass Other Cardiovascular Surgeries/Procedures: x3 Respiratory Surgical History: Reports: None GI Surgical History: Reports: Appendectomy, Colonoscopy, Hernia Repair/Other Female Surgical History: Reports: None Male Surgical History: Reports: None Endocrine Surgical History: Reports: None Musculoskeletal Surgical History: Reports: Carpal Tunnel Oncologic Surgical History: Reports: None Dermatological Surgical History: Reports: None - SUBSTANCE USE Tobacco Use Status *Q: Light Tobacco User Tobacco Use Within Last Twelve Months: Cigarettes Days Per Week of Alcohol Use: 7 Number of Drinks Per Day: 1 Total Drinks Per Week: 7 Date of Last Drink: 06/25/20 Recreational Drug Use History: No - HOME MEDS Home Medications: Home Meds Lisinopril [Prinivil] 20 mg PO BEDTIME 12/13/14 [History] Metoprolol Tartrate [Lopressor] 25 mg PO BID 12/13/14 [History] Fish Oil/[place]-3 Fatty Acids [Fish Oil 1,000 MG] 1 gm PO DAILY 09/09/18 [History] atorvaSTATin Calcium [Lipitor] 40 mg PO DAILY 09/09/18 [History] Cyanocobalamin (Vitamin B-12) [Vitamin B-12] 1,000 mcg PO DAILY 03/07/19 [History] Acetaminophen/HYDROcodone [[place] 325-5 MG] 1 - 2 tab PO Q6H PRN #30 tablet 06/26/20 [Rx] Aspirin [Adult Low Dose Aspirin EC] 81 mg PO DAILY 06/26/20 [History] Fenofibrate Nanocrystallized [Tricor] 145 mg PO DAILY 06/26/20 [History] Glucosamine [Glucosamine Sulfate] 1 cap PO BID 06/26/20 [History] - CURRENT (IN HOUSE) MEDS Current Meds: Current Medications Lactated Ringer's (Ringers, Lactated) 1,000 mls @ 125 mls/hr IV ASDIRECTED BLANE Stop: 06/29/20 23:00 Last Admin: 06/29/20 09:00 Dose: 125 mls/hr Documented by: Lidocaine/Sodium Bicarbonate (Buffered Lidocaine 1% In Ns 8.4%) 0.25 ml IDERM ONETIME PRN PRN Reason: Prior to IV Start Stop: 06/29/20 18:00 Last Admin: 06/29/20 09:00 Dose: 0.25 ml Documented by: Sodium Chloride (Saline Flush) 10 ml FLUSH ASDIRECTED PRN PRN Reason: Keep Vein Open Stop: 06/29/20 18:00 Discontinued Medications Fentanyl (Sublimaze) Confirm Administered Dose 100 mcg .ROUTE .STK-MED ONE Stop: 06/29/20 09:49 Midazolam HCl (Versed 1 Mg/Ml) Confirm Administered Dose 4 mg .ROUTE .STK-MED ONE Stop: 06/29/20 09:49 Ropivacaine (Naropin 0.5%) Confirm Administered Dose 30 ml .ROUTE .STK-MED ONE Stop: 06/29/20 09:24
--- NOTE | 2020-06-29 10:28 | PCM.PRNOTE ---
- Free Text/Narrative Note: Pre-op Dx: Left 1st carpometacarpal joint osteoarthritis Surgical procedure: Left 1st carpometacarpal joint arthroplasty Requesting physician: Dr. Gabo Wisdom Risks and benefits discussed with the patient preoperatively including infection, bleeding, incomplete or failed block, possible nerve damage, local a nesthetic toxicity. Chart reviewed, VS stable. Permit signed. Patient in preoperative room, stable , alert and awake. Time out performed at 10:00. Oxygen 3L via NC. Left arm abducted 90 degrees, supinated and supported on the bedside table. Left arm has been prepped with Chloraprep x 1 and allowed to dry. Midazolam 2 mg IV given. Under aseptic technique, the brachial plexus branches were identified around axillary artery under ultrasound prior to needle insertion. Local skin infiltration with 2 mls of 1% Lidocaine. 2" Stimuplex needle #22 G was inserted under US guidance. Nerve stimulation of 0.6 mAmp with elicited flexion of the forearm was used to confirm the the needle location. Under direct visualization of needle tip the injection of 0.5% Ropivacaine with 1:200k epinephrine (23 ml) with 8 mg of Dexamethasone, total of 25 mls in divided doses (20 mls at median, radial and ulnar branches, and 5 ml around musculocutaneous nerve (after needle redirection) completed without problems.. Negative aspiration was maintained with each 3 ml aliquot of injection. No local anesthetic toxicity was noted. Patient is awake, stable and tolerated the procedure well. Please see the attached U/S images Time: 10:00 - 10:13 Additional note: additional 4 mls of 0.25% PF Bupivacaine were injected by me intraoperatively at 11:45, subcutaneously in the circular fashion in the left wrist , proximal to anatomical snuffbox to cover cutaneous branches of radial nerve.
[2020-06-29] MEDS ORDERED: Propofol 200 MG/20 ML SDV ONE ×4 (10:32→11:38)
[2020-06-29] MEDS ORDERED: Lidocaine 1% 4 ML ONE (10:36)
[2020-06-29] MEDS ORDERED: ceFAZolin 1 GM Vial ONE (10:39)
[2020-06-29] MEDS ORDERED: Bupivacaine 0.25% 10 ML SDV ONE (11:02)
[2020-06-29] MEDS ORDERED: Dexamethasone 4 MG/ML 5 ML MDV ONE (11:04)
[2020-06-29] MEDS ORDERED: Lactated Ringers 1,000 ML ONE (11:26)
--- NOTE | 2020-06-29 12:04 | PCM48HPAN ---
Post Anesthesia Note - EVALUATION WITHIN 48HRS OF ANESTHETIC Vital Signs in Normal Range: Yes Patient Participated in Evaluation: Yes Respiratory Function Stable: Yes Airway Patent: Yes Cardiovascular Function Stable: Yes Hydration Status Stable: Yes Pain Control Satisfactory: Yes Nausea and Vomiting Control Satisfactory: Yes Mental Status Recovered: Yes Vital Signs: Last Vital Signs Temp 97.1 F 06/29/20 11:55 Pulse 70 06/29/20 11:55 Resp 16 06/29/20 11:55 BP 129/62 06/29/20 11:55 Pulse Ox 93 L 06/29/20 11:55
--- NOTE | 2020-06-29 12:09 | CR ---
Left wrist: Five fluoroscopic spot views were obtained of the left wrist. Findings: Study was obtained utilizing C-arm device. Study shows resection of the trapezium. There are 2 anchors being seen between the first and second metacarpals. Fluoroscopy time is given as 7.5 seconds. Impression: 1. Procedural study as described above. Diagnostic code #2
[2020-06-29 12:25] VITALS: BP 135/74; PULSE 67
--- NOTE | 2020-07-19 10:37 | PCM.OPNOTE ---
- General Post-Op/Procedure Note Date of Surgery/Procedure: 06/29/20 Operative Procedure(s): left wrist trapezeiectomy with tight rope suspension Pre Op Diagnosis: left first carpometacarpal joint osteoarthritis Post-Op Diagnosis: Same Anesthesia Technique: MAC, Regional Block Primary Surgeon: Gabo Ash Anesthesia Provider: Huy Zelaya Tech Writer: Mary Dalton EBL in mLs: 5 Complications: None Condition: Good
--- NOTE | 2020-07-19 11:13 | OR ---
DATE OF OPERATION: 06/29/2020 SURGEON: Gabo Ash MD OPERATION PERFORMED: Left wrist trapeziectomy with TightRope suspension. PREOPERATIVE DIAGNOSIS: Left 1st carpometacarpal joint osteoarthritis. POSTOPERATIVE DIAGNOSIS: Left 1st carpometacarpal joint osteoarthritis. ANESTHESIA: MAC with regional block. ANESTHESIOLOGIST: Huy Zelaya. ICE SKATING INSTRUCTOR: Mary Dalton PA-C. ESTIMATED BLOOD LOSS: 5 mL. COMPLICATIONS: None. CONDITION: Stable. DESCRIPTION OF PROCEDURE: The patient was identified in the preoperative holding area. Proper site was marked and identified by the surgeon. The patient was taken back to the operating theater, where after adequate anesthesia the patient's left upper extremity was sterile prepped and draped in the usual sterile fashion. OR time- out was performed. The patient received 2 g IV Ancef. Left upper extremity was exsanguinated. Tourniquet was insufflated to 215 mmHg. Standard dorsal approach to the 1st carpometacarpal joint was done. This was taken down to the tendons, tendons were retracted. A capsulotomy was then performed making sure to protect the neurovascular bundle proximally. After resecting the capsule both dorsally and volarly, the trapezium was identified. C-arm fluoroscopy was utilized to make sure it was the proper point. An osteotome and rongeur then were used to remove the trapezium in whole, making sure there was no bony fragments left. C-arm fluoroscopy was then utilized for the guide pin from the Arthrex tightrope placed from the base of the 1st metacarpal into the metaphyseal region of the 2nd metacarpal. A small incision was made over the dorsum of the 2nd metacarpal where the pin was exiting, making sure it was not through any tendons. The TightRope was then placed on the 1st metacarpal side and brought through up into the 2nd metacarpal with the pin. It was found to be in good positioning with good bounce back and the patient was able to get palm flat on the table and close the thumb with the small finger. Tension was then applied and the Endobutton was placed on the 2nd metacarpal and then was tensioned and then a knot was tied. C-arm fluoroscopy again showed it in good position. Adequate saline was irrigated through the wound. 2-0 Vicryl was used to close the capsule, 3-0 Vicryl was used subcutaneously, and Monocryl was used for closure of the skin. The patient was placed in a sterile soft dressing and a radial thumb spica splint. PERFECTO /[id number]
== END 2020-06-29 12:50 | disposition home or self-care (01) ==
LOC: JD.SDS 08:51
PROVIDERS: ATTEND Orthopaedic Surgery
DX: M18.12 Unilateral primary osteoarthritis of first carpometacarpal joint, left hand (principal); E78.00 Pure hypercholesterolemia, unspecified; I12.9 Hypertensive chronic kidney disease with stage 1 through stage 4 chronic kidney disease, or unspecified chronic kidney disease; N18.30 Chronic kidney disease, stage 3 unspecified; N17.9 Acute kidney failure, unspecified; I25.10 Atherosclerotic heart disease of native coronary artery without angina pectoris; E66.9 Obesity, unspecified; F17.210 Nicotine dependence, cigarettes, uncomplicated; Z79.899 Other long term (current) drug therapy; Z79.82 Long term (current) use of aspirin; Z90.49 Acquired absence of other specified parts of digestive tract; Z98.890 Other specified postprocedural states; Z95.1 Presence of aortocoronary bypass graft; Z68.33 Body mass index [BMI] 33.0-33.9, adult
CPT/HCPCS: 25447; 76000; 87641; C1713; J0690; J1100; J2001; J2250; J2704; J2795; J3010; J3490; J7120; 01830

== ENCOUNTER 2024-06-27 08:37 | Day surgery (SDC) | payer BC ==
[~2024-06-27 08:37] MED LIST changes: -Lactated Ringers 1,000 ML IV SCH; -Lidocaine 1%/Sod Bicarbonate in NS 8.4% 1 ML Syringe IDERM PRN; +Sodium Chloride 0.9% 10 ML Syringe FLUSH SCH
[2024-06-27] MEDS ORDERED: Ketorolac 30 MG/ML SDV ONE (08:48)
[2024-06-27] MEDS ORDERED: fentaNYL 100 MCG/2 ML SDV ONE (08:48)
[2024-06-27] MEDS ORDERED: Midazolam 1 MG/ML 2 ML SDV ONE (08:48)
[2024-06-27] MEDS ORDERED: Dexamethasone 4 MG/ML 5 ML MDV ONE (08:48)
[2024-06-27] MEDS ORDERED: Lidocaine 2% 5 ML SDV ONE (08:48)
[2024-06-27] MEDS ORDERED: Propofol 200 MG/20 ML SDV ONE (08:48)
[2024-06-27] MEDS ORDERED: ceFAZolin 2 GM Vial ONE (08:48)
[2024-06-27] MEDS ORDERED: Ondansetron 4 MG/2 ML SDV ONE (08:48)
[2024-06-27] MEDS: Lactated Ringers 1,000 ML IV SCH (09:05)
[2024-06-27] MEDS ORDERED: HYDROmorphone 0.5 MG/0.5 ML Syringe IVPUSH PRN (10:29)
[2024-06-27] MEDS ORDERED: Ondansetron 4 MG/2 ML SDV IVPUSH PRN (10:29)
[2024-06-27] MEDS: Bupivacaine 0.25% 10 ML SDV ONE (10:35)
[2024-06-27] MEDS: fentaNYL 100 MCG/2 ML SDV IVPUSH PRN (11:00)
[2024-06-27] MEDS: Acetaminophen/HYDROcodone 325-5 MG Tab PO PRN (11:45)
[2024-06-27 13:16] VITALS: BP 129/68; PULSE 57
== END 2024-06-27 13:20 | disposition home or self-care (01) ==
LOC: JD.SDS 08:37
PROVIDERS: ATTEND Orthopaedic Surgery
DX: G56.21 Lesion of ulnar nerve, right upper limb (principal); G56.11 Other lesions of median nerve, right upper limb; I12.9 Hypertensive chronic kidney disease with stage 1 through stage 4 chronic kidney disease, or unspecified chronic kidney disease; N18.9 Chronic kidney disease, unspecified; E78.00 Pure hypercholesterolemia, unspecified; I25.10 Atherosclerotic heart disease of native coronary artery without angina pectoris; Z95.1 Presence of aortocoronary bypass graft; F17.210 Nicotine dependence, cigarettes, uncomplicated
CPT/HCPCS: 64718; A9270; J0665; J0690; J1100; J1885; J2250; J2405; J2704; J3010; J7120; 01710; J3490